=== PATIENT | female | born 1995 | race Caucasian/White ===

== ENCOUNTER 2019-02-17 20:47 | Emergency (ER) | payer OTHER ==
[2019-02-17] MEDS ORDERED: DIPH/PERTUSS(ACELL)/TETANUS VAC/PF 0.5 ML SYR (>=10YO) IM ONE (22:17)
--- NOTE | 2019-02-17 22:17 | ER Document Report ---
ED Medical Screen (RME) - General Chief Complaint: Anxiety Stated Complaint: ANXIETY Time Seen by Provider: 02/17/19 22:06 - HPI Notes: 02/17/19 22:14 Patient is a 23-year-old female with a history of depression, anxiety, PTSD who presents complaining of worsening symptoms since Wednesday. Patient states that she cut her forearm with a kitchen knife which is the first time she ever performed any self harm aside from when she was a kid and try to strangle herself. She does have suicidal ideations without active plan right now. Patient states that she did feel like she had demons inside of her recently. Patient did not elaborate on the Wednesday incident, but states that her and her may be getting a divorce. No fever, chest pain, vomiting. Unknown last tetanus. I have treated and performed a rapid initial assessment of this patient. A comprehensive ED assessment and evaluation of the patient, analysis of test results and completion of medical decision making process will be conducted by additional ED providers. PHYSICAL EXAMINATION: GENERAL: Well-appearing, well-nourished and in no acute distress. A&Ox4. Answers questions appropriately. Psych: Anxious Skin: Small excoriations of the left forearm, none of which appear to need suture repair. Physical Exam - Vital signs Vitals: Temp Pulse Resp BP Pulse Ox 98.1 F 89 18 113/69 100 02/17/19 21:12 02/17/19 21:12 02/17/19 21:12 02/17/19 21:12 02/17/19 21:12 Course - Vital Signs Vital signs: Temp Pulse Resp BP Pulse Ox 98.1 F 89 18 113/69 100 02/17/19 21:12 02/17/19 21:12 02/17/19 21:12 02/17/19 21:12 02/17/19 21:12
[2019-02-17 22:58] LABS: ABSOLUTE BASOPHILS # (AUTO) 0.1 10^3/uL (0.0-0.2); ABSOLUTE EOSINOPHILS # (AUTO) 0.1 10^3/uL (0.0-0.6); ABSOLUTE LYMPHOCYTES (AUTO) 2.7 10^3/uL (0.5-4.7); ABSOLUTE NEUT (AUTO) 7.4 10^3/uL (1.7-8.2); BASOPHILS % (AUTO) 0.8 % (0-2); HEMATOCRIT 45.6 % (36.0-47.0); HEMOGLOBIN 15.4 g/dL (12.0-15.5); LYMPHOCYTES % (AUTO) 23.7 % (13-45); MEAN CORPUSCULAR HEMOGLOBIN 29.4 pg (27.0-33.4); MEAN CORPUSCULAR HGB CONC 33.7 g/dL (32.0-36.0); MEAN CORPUSCULAR VOLUME 87 fl (80-97); MONOCYTES % (AUTO) 8.8 % (3-13); PLATELET COUNT 312 10^3/uL (150-450); RED BLOOD COUNT 5.23 10^6/uL (3.72-5.28); RED CELL DISTRIBUTION WIDTH 12.8 % (11.5-14.0); SEGMENTED NEUTROPHILS % (AUTO) 65.7 % (42-78); TOTAL CELLS COUNTED % (AUTO) 100 %; WHITE BLOOD COUNT 11.3 10^3/uL (4.0-10.5)
[2019-02-17 23:02] LABS: APPEARANCE,URINE CLOUDY; BILIRUBIN,URINE NEGATIVE (NEGATIVE); COLOR,URINE YELLOW; GLUCOSE, URINE NEGATIVE (NEGATIVE); KETONES,URINE 80 mg/dL (NEGATIVE); LEUKOCYTE ESTERASE,URINE NEGATIVE (NEGATIVE); NITRITE,URINE NEGATIVE (NEGATIVE); PROTEIN,URINE NEGATIVE (NEGATIVE); URINE SPECIFIC GRAVITY 1.027; UROBILINOGEN,URINE NEGATIVE mg/dL (<2.0)
[2019-02-17 23:14] LABS: ALBUMIN 5.3 g/dL (3.5-5.0); ALKALINE PHOSPHATASE 99 U/L (38-126); ANION GAP 16 (5-19); ASPARTATE AMINO TRANSFERASE 30 U/L (14-36); BILIRUBIN,DIRECT 0.2 mg/dL (0.0-0.4); BILIRUBIN,TOTAL 0.8 mg/dL (0.2-1.3); BLOOD UREA NITROGEN 12 mg/dL (7-20); CALCIUM 10.2 mg/dL (8.4-10.2); CARBON DIOXIDE 26 mmol/L (22-30); CHLORIDE 100 mmol/L (98-107); GLUCOSE 84 mg/dL (75-110); POTASSIUM 4.1 mmol/L (3.6-5.0); TOTAL PROTEIN 8.7 g/dL (6.3-8.2)
[2019-02-17 23:23] LABS: URINE AMPHETAMINES SCREEN NEGATIVE; URINE BARBITURATES SCREEN NEGATIVE; URINE COCAINE SCREEN NEGATIVE; URINE MARIJUANA (THC) SCREEN NEGATIVE; URINE METHADONE SCREEN NEGATIVE; URINE PHENCYCLIDINE SCREEN NEGATIVE
[2019-02-17 23:24] LABS: URINE BENZODIAZEPINES SCREEN UNCONFIRMED POSITIVE
[2019-02-17 23:32] LABS: ACETAMINOPHEN < 10 ug/mL (10-30); ALCOHOL < 10 mg/dL (NONE DETECTED); SALICYLATE < 1.0 mg/dL (2.0-20.0)
[2019-02-18] MEDS ORDERED: MELATONIN 5 MG TABLET PO ONE (00:51)
--- NOTE | 2019-02-18 00:51 | ER Document Report ---
ED Psych Disorder / Suicide - General TRAVEL OUTSIDE OF THE [place] IN LAST 30 DAYS: No - Related Data Home Medications: progesterone 0.025 patch. singular. flonase. zyrtec <PATTI POTTS - Last Filed: 02/18/19 05:38> <SLIMEDUSTIN - Last Filed: 02/18/19 14:32> <NICKIPAULO Craven - Last Filed: 02/18/19 14:49> - General Chief Complaint: Psych Problem Stated Complaint: ANXIETY Time Seen by Provider: 02/17/19 22:06 Primary Care Provider: [facility] [Outside] - Follow up as needed HENRRY GRECO PA [Primary Care Provider] - Follow up as needed Notes: RME NOTE: Patient is a 23-year-old female with a history of depression, anxiety, PTSD who presents complaining of worsening symptoms since Wednesday. Patient states that she cut her forearm with a kitchen knife which is the first time she ever performed any self harm aside from when she was a kid and try to strangle herself. She does have suicidal ideations without active plan right now. Patient states that she did feel like she had demons inside of her recently. Patient did not elaborate on the Wednesday night incident, but states that her and her may be getting a divorce. No fever, chest pain, vomiting. Unknown last tetanus. RN NOTE: pt has hx of PTSD, depression, anxiety. pt since is concerned about poss divorce. she hasn't been eating or sleeping. this am pt felt there was a black demons in her. yesterday she started cutting herself (first time). pt states she is feeling suicidal and has a vague plan. MY HPI: Same as above. Pt voices to me "I have demons in me." Stated that she is very paranoid and does not want to go to sleep. States she used to take a medication for sleep, but it unsure of what it was called. (PATTI POTTS) - Related Data Allergies/Adverse Reactions: No Known Allergies Allergy (Unverified 02/17/19 23:19) Past Medical History - General Information source: Patient - Social History Smoking Status: Never Smoker Frequency of alcohol use: Rare Drug Abuse: None Family History: Reviewed & Not Pertinent Patient has suicidal ideation: Yes Patient has homicidal ideation: No <PATTI POTTS - Last Filed: 02/18/19 05:38> Review of Systems - Review of Systems Constitutional: denies: Fever EENT: No symptoms reported Cardiovascular: No symptoms reported Respiratory: No symptoms reported Gastrointestinal: No symptoms reported Genitourinary: No symptoms reported Female Genitourinary: No symptoms reported Musculoskeletal: No symptoms reported Skin: See HPI Hematologic/Lymphatic: No symptoms reported Neurological/Psychological: See HPI <PATTI POTTS - Last Filed: 02/18/19 05:38> Physical Exam <PATTI POTTS - Last Filed: 02/18/19 05:38> - Vital signs Vitals: Temp Pulse Resp BP Pulse Ox 98.1 F 89 18 113/69 100 02/17/19 21:11 02/17/19 21:11 02/17/19 21:11 02/17/19 21:11 02/17/19 21:11 - Notes Notes: GENERAL: Alert, interacts well. No acute distress. HEAD: Normocephalic, atraumatic. EYES: Pupils equal, round, and reactive to light. Extraocular movements intact. ENT: Oral mucosa moist, tongue midline. NECK: Full range of motion. Supple. Trachea midline. LUNGS: Clear to auscultation bilaterally, no wheezes, rales, or rhonchi. No respiratory distress. HEART: Regular rate and rhythm. No murmur ABDOMEN: Soft, non-tender. Non-distended. Bowel sounds present in all 4 quadrants. EXTREMITIES: Moves all 4 extremities spontaneously. No edema, normal radial and dorsalis pedis pulses bilaterally. No cyanosis. BACK: no cervical, thoracic, lumbar midline tenderness. No saddle anesthesia, normal distal neurovascular exam. NEUROLOGICAL: Alert and oriented x3. Normal speech. cranial nerves II through XII grossly intact PSYCH: flat affect, anxious mood. SKIN: Warm, dry, normal turgor. Superficial abrasions noted left forearm. (PATTI POTTS) Course - Laboratory Result Diagrams: 02/17/19 22:31 02/17/19 22:31 <PATTI POTTS - Last Filed: 02/18/19 05:38> - Laboratory Result Diagrams: 02/17/19 22:31 02/17/19 22:31 <PAULO CACERES R - Last Filed: 02/18/19 14:49> - Re-evaluation Re-evalutation: 02/18/19 00:59 Laboratory 02/17/19 02/17/19 02/17/19 22:31 22:31 22:31 WBC 11.3 H RBC 5.23 Hgb 15.4 Hct 45.6 MCV 87 MCH 29.4 MCHC 33.7 RDW 12.8 Plt Count 312 Lymph % (Auto) 23.7 Summers % (Auto) 8.8 Eos % (Auto) 1.0 Baso % (Auto) 0.8 Absolute Neuts (auto) 7.4 Absolute Lymphs (auto) 2.7 Absolute Monos (auto) 1.0 Absolute Eos (auto) 0.1 Absolute Basos (auto) 0.1 Seg Neutrophils % 65.7 Sodium 141.9 Potassium 4.1 Chloride 100 Carbon Dioxide 26 Anion Gap 16 BUN 12 Creatinine 0.67 Est GFR ( Amer) > 60 Est GFR (MDRD) Non-Af > 60 Glucose 84 Calcium 10.2 Total Bilirubin 0.8 Direct Bilirubin 0.2 Neonat Total Bilirubin Not Reportable Neonat Direct Bilirubin Not Reportable Neonat Indirect Bili Not Reportable AST 30 ALT 21 Alkaline Phosphatase 99 Total Protein 8.7 H Albumin 5.3 H TSH Serum HCG, Qual NEGATIVE Urine Color Urine Appearance Urine pH Ur Specific Gipsy Urine Protein Urine Glucose (UA) Urine Ketones Urine Blood Urine Nitrite Urine Bilirubin Urine Urobilinogen Ur Leukocyte Esterase Urine WBC (Auto) Urine RBC (Auto) Urine Bacteria (Auto) Squamous Epi Cells Auto Urine Mucus (Auto) Urine Ascorbic Acid Salicylates < 1.0 L Urine Opiates Screen Urine Methadone Screen Acetaminophen < 10 L Ur Barbiturates Screen Ur Phencyclidine Scrn Ur Amphetamines Screen U Benzodiazepines Scrn Urine Cocaine Screen U Marijuana (THC) Screen Serum Alcohol < 10 02/17/19 02/17/19 02/17/19 22:31 22:31 22:31 WBC RBC Hgb Hct MCV MCH MCHC RDW Plt Count Lymph % (Auto) Summers % (Auto) Eos % (Auto) Baso % (Auto) Absolute Neuts (auto) Absolute Lymphs (auto) Absolute Monos (auto) Absolute Eos (auto) Absolute Basos (auto) Seg Neutrophils % Sodium Potassium Chloride Carbon Dioxide Anion Gap BUN Creatinine Est GFR ( Amer) Est GFR (MDRD) Non-Af Glucose Calcium Total Bilirubin Direct Bilirubin Neonat Total Bilirubin Neonat Direct Bilirubin Neonat Indirect Bili AST ALT Alkaline Phosphatase Total Protein Albumin TSH 3.37 Serum HCG, Qual Urine Color YELLOW Urine Appearance CLOUDY Urine pH 5.0 Ur Specific Gipsy 1.027 Urine Protein NEGATIVE Urine Glucose (UA) NEGATIVE Urine Ketones 80 H Urine Blood NEGATIVE Urine Nitrite NEGATIVE Urine Bilirubin NEGATIVE Urine Urobilinogen NEGATIVE Ur Leukocyte Esterase NEGATIVE Urine WBC (Auto) 3 Urine RBC (Auto) 0 Urine Bacteria (Auto) TRACE Squamous Epi Cells Auto 7 Urine Mucus (Auto) MANY Urine Ascorbic Acid NEGATIVE Salicylates Urine Opiates Screen NEGATIVE Urine Methadone Screen NEGATIVE Acetaminophen Ur Barbiturates Screen NEGATIVE Ur Phencyclidine Scrn NEGATIVE Ur Amphetamines Screen NEGATIVE U Benzodiazepines Scrn UNCONFIRMED POSITIVE Urine Cocaine Screen NEGATIVE U Marijuana (THC) Screen NEGATIVE Serum Alcohol IVC paperwork filled out by myself and signed by Dr. Oseguera. Patient stable and cleared for psychiatric evaluation at this time. (PATTI POTTS) - Vital Signs Vital signs: Temp Pulse Resp BP Pulse Ox 98 F 72 16 121/76 98 02/18/19 10:38 02/18/19 10:38 02/18/19 10:38 02/18/19 10:38 02/18/19 10:38 - Laboratory Laboratory results interpreted by ga: 02/17/19 02/17/19 02/17/19 22:31 22:31 22:31 WBC 11.3 H Total Protein 8.7 H Albumin 5.3 H Urine Ketones 80 H Salicylates < 1.0 L Acetaminophen < 10 L Discharge <PATTI POTTS - Last Filed: 02/18/19 05:38> <DUSTIN PALENCIA - Last Filed: 02/18/19 14:32> <PAULO CACERES - Last Filed: 02/18/19 14:49> - Discharge Clinical Impression: Suicidal ideation, Complex posttraumatic stress disorder Condition: Stable Disposition: HOME, SELF-CARE Additional Instructions: You have been evaluated both medical and behavioral health teams and been in deemed appropriate for discharge. You have been provided prescriptions for Prozac 20 mg daily and BuSpar 5 mg twice daily; please take as directed. You have also been provided a local resource list of area providers including mobile crisis contact information. Please contact your chosen outpatient mental health provider and call them Wednesday for an appointment. You are recommended to engage in therapeutic services such as Solution Focused Therapy and medication management. DEPRESSION: Your evaluation reveals that you have mental depression. While symptoms may be vague, they often include disturbance of sleep, fatigue, loss of appetite, and general loss of interest in life. While depression may be a side effect of drugs, or a reaction to a major change in your life, many cases have no known cause. If depression is acute, and related to a major loss in your life, you can expect it to clear completely with time. If you have been depressed a long time, are prone to repeated bouts of depression or low mood, or have been thinki ng of suicide, get help. Depression can be treated with anti-depressant medication and counselling. Long-term depression will often take a few weeks to clear, even with appropriate medication. Follow-up care is important. SUICIDAL IDEATION: Suicidal ideation is a common medical term for thoughts about suicide, which may be as detailed as a formulated plan, without the suicidal act itself. Although most people who undergo suicidal ideation do not commit suicide, some go on to make suicide attempts. The range of suicidal ideation varies greatly from fleeting to detailed planning, role playing, and unsuccessful attempts. While thoughts about suicide are common, most people do not carry out serious actions to commit suicide. Based upon your evaluation and discussion with you, we do not believe you are currently at risk to act upon your thoughts of suicide. You have agreed to return to the Emergency Department, at any time, if you feel inclined to act upon your suicidal thoughts. FOLLOW-UP CARE: If you have been referred to a physician for follow-up care, call the physicians office for an appointment as you were instructed or within the next two days. If you experience worsening or a significant change in your symptoms, notify the physician immediately or return to the Emergency Department at any time for re-evaluation. Prescriptions: Buspirone HCl [Buspar 5 mg Tablet] 1 tab PO BID #28 tab Fluoxetine HCl [Prozac 20 mg Capsule] 20 mg PO DAILY #14 capsule Referrals: [facility] [Outside] - Follow up as needed HENRRY GRECO PA [Primary Care Provider] - Follow up as needed
--- NOTE | 2019-02-18 11:35 | EKG REPORT ---
SEVERITY:- NORMAL ECG - SINUS RHYTHM : Confirmed by: Damaris Chakraborty MD 18-Feb-2019 11:35:09
[2019-02-18] MEDS ORDERED: FLUOXETINE HCL 20 MG CAPSULE PO ONE (12:14)
[2019-02-18] MEDS ORDERED: BUSPIRONE HCL 10 MG TABLET PO ONE (12:14)
--- NOTE | 2019-02-18 14:55 | ER Document Report ---
Doctor's Note Notes: 02/18/19 14:50 this patient. Patient without complaints. Lungs clear to auscultation bilaterally. Regular rate and rhythm. Patient to be discharged with medications and outpatient follow-up per psychiatric recommendations.
[2019-02-18 15:27] VITALS: BP 110/62
== END 2019-02-18 15:30 | disposition home or self-care (01) ==
LOC: ER 20:47
DX: F43.10 Post-traumatic stress disorder, unspecified (principal); S50.812A Abrasion of left forearm, initial encounter; X78.1XXA Intentional self-harm by knife, initial encounter; R45.851 Suicidal ideations
CPT/HCPCS: 93005; 36415; 80307 ×4; 84443; 84703; 85025; 80053; 81001; 90715; 93010; J3490; 90471; 99283